=== PATIENT | male | born 1980 | race Caucasian/White ===

== ENCOUNTER → 2016-11-19 | Outpatient (CLI) | payer BC ==
--- NOTE | 2016-11-19 10:30 | DIAGNOSTIC IMAGING REPORT ---
FLUOROSCOPICALLY GUIDED RIGHT SHOULDER ARTHROGRAM PRE-MRI CLINICAL HISTORY: Right shoulder pain COMPARISON STUDY: No previous studies for comparison. FINDINGS: A timeout was performed. The risks the procedure were explained the patient informed consent was obtained. The patient was prepped and draped in sterile fashion. The skin was anesthetized 1% lidocaine. Under fluoroscopic guidance, 22-gauge spinal needle was introduced into the right shoulder joint capsule. A mixture of water-soluble contrast and gadolinium were instilled. A fluoroscopic spot image demonstrates intra-articular location of the contrast. IMPRESSION: Successful fluoroscopically guided right shoulder arthrographic gadolinium injection. The patient was sent to the MRI suite for further evaluation. Electronically signed by: Nando Robertson M.D. 11/19/2016 10:29 AM Dictated Date/Time: 11/19/2016 10:28 AM
--- NOTE | 2016-11-19 11:29 | DIAGNOSTIC IMAGING REPORT ---
POST ARTHROGRAM MRI THE RIGHT SHOULDER CLINICAL HISTORY: Right shoulder pain COMPARISON STUDY: No previous studies for comparison. FINDINGS: Following a gadolinium arthrogram, imaging was performed in the sagittal, coronal, and axial planes. There are no areas of marrow edema to indicate occult fracture, bone bruise, or neoplasm. The bicipital tendon appears normal. There is no evidence of rotator cuff tear. There is minor supraspinatus tendinopathy. There is a labral SLAP tear present. There is increased signal within the inferior glenoid labrum. This could represent a congenital cleft although an additional area of labral tear cannot be excluded. This examination was reviewed with a fellow radiologist. IMPRESSION: 1. Minimal supraspinatus tendinopathy. No evidence of rotator cuff tear 2. Labral SLAP tear Electronically signed by: Nando Robertson M.D. 11/19/2016 11:28 AM Dictated Date/Time: 11/19/2016 11:13 AM
== END | disposition home or self-care (01) ==
LOC: C.MRIBC 09:44
PROVIDERS: ATTEND Orthopaedic Surgery
DX: M25.511 Pain in right shoulder (principal)

== ENCOUNTER → 2017-08-25 | Day surgery (SDC) | payer BC ==
[2017-07-28 10:19] VITALS: Ht 170.2 cm; Wt 75.0 kg
[~2017-08-25] VITALS: Ht 170.2 cm; Wt 75.0 kg
[~2017-08-25] MED LIST: VENL150C56 PO
== END | disposition home or self-care (01) ==
LOC: EDSTATUS 09:30 → C.PAT 13:46
PROVIDERS: ATTEND Orthopaedic Surgery
DX: Z01.818 Encounter for other preprocedural examination (principal); S43.431A Superior glenoid labrum lesion of right shoulder, initial encounter; X58.XXXA Exposure to other specified factors, initial encounter; F41.9 Anxiety disorder, unspecified; F32.9 Major depressive disorder, single episode, unspecified; Z87.891 Personal history of nicotine dependence; Z79.899 Other long term (current) drug therapy